=== PATIENT | female | born 2000 | race Caucasian/White ===

== ENCOUNTER 2020-01-08 16:40 | Observation (INO) ==
[2020-01-08] MEDS ORDERED: ONDANSETRON INJ 2 MG/ML 2 ML VIAL IV STA ×3 (17:17→21:27)
[2020-01-08] MEDS ORDERED: SODIUM CHLORIDE 0.9% 1000ML 1,000 ML IV ONE ×2 (17:17→19:20)
[2020-01-08] MEDS ORDERED: CYANOCOBALAMIN 1,000 MCG in SYRINGE 0.97 ML IM STA (17:17)
[2020-01-08] MEDS ORDERED: MoRPHine SULFATE 4 MG/ML 1 ML CARP\\VIAL IV STA (17:17)
[2020-01-08] MEDS ORDERED: CYANOCOBALAMIN 1000 MCG/ML VIAL IM ONE (17:30)
--- NOTE | 2020-01-08 17:48 | Emergency Department Note ---
Impression & Plan Abdominal pain, Hx of cholecystectomy, Nausea & vomiting ED Provider Note NAME: FLYNN YO AGE: 19 SEX: F : 2000 ARRIVES VIA: Walk-In INFORMANT: Patient, ED PROVIDER(S): Bronson Brown MD Chief Complaint: Abdominal pain, nausea vomiting HPI: Patient does present with the above complaints. Patient states that she has had symptoms for approximately 12 to 24 hours. The patient has had approximately 15 episodes of nonbloody nonbilious emesis. Patient does complain of abdominal pain that is in the epigastric. It is sharp in nature. The patient does state that she had a recent cholecystectomy and appendectomy. The patient's cholecystectomy was completed secondarily after her appendectomy ginger roximately 4 weeks ago. The appendectomy was 2 weeks prior to that. Patient does have pain that is located over her incisional site. Patient has tried to take Zofran at home but vomited. Patient denies any fevers or chills. The patient is from [place] and a student the patient denies any sick contacts. Patient denies any changes in diet denies alcohol or tobacco use. Given the patient's recent surgery the patient has been off of her control and the patient is currently on her menstrual period. ROS: See HPI for pertinent positives and negatives. A total of 10 systems were reviewed and otherwise negative. Past medical history: See below Surgical history: See below Social history: See below Physical Exam: GENERAL: Uncomfortable in appearance. Wearing glasses and a mask. EYE EXAM: Normal conjunctiva. PERRL, no anisocoria and EOM's grossly intact w/o pain. NECK: Supple, no nuchal rigidity, no adenopathy, non-tender. No signs of meningismus. LUNGS: Clear to auscultation. Normal chest wall mechanics. HEART: NSR, no MRG. ABDOMEN: Epigastric pain without peritonitis, no lower abdominal pain. Incisional site is well-appearing without fluctuance drainage or erythema. BACK: No CVA TTP. SKIN: No rashes and no bruising. UPPER EXTREMITIES: Upper extremities are grossly normal. LOWER EXTREMITIES: Grossly normal, no edema. NEURO EXAM: A&O x3, cranial nerves II-XII grossly intact, normal speech, moves all 4 extremities on command w/o issue. Differential diagnoses: Appendicitis, ovarian cyst, ovarian torsion, ectopic , TOA, PID, infections, diverticulitis, UTI, obstruction, mesenteric ischemia, aortic pathology, inflammatory bowel disease, renal colic, PUD, pancreatitis, biliary pathology, hernia, volvulus, constipation, as well as other pathologies. Course: Patient was seen and evaluated the bedside. Full history physical exam was performed. EKG: Sinus rate of 70, normal QRS, normal axis no ST changes. Imaging Studies: Radiology results as stated below per my review in the radiologist's interpretation: ABDOMEN AND PELVIS CT WITH IV CONTRAST CT DOSE: 253.46 mGy.cm HISTORY: upper ab pain n/v; recent van/appy 4 weeks ago TECHNIQUE: Multiaxial CT images of the abdomen and pelvis were performed following the use of intravenous contrast. A dose lowering technique was utilized adhering to the principles of ALARA. COMPARISON STUDY: None. FINDINGS: The lung bases are clear. No pneumoperitoneum. No pneumatosis. No fractures within the visualized osseous structures. No hepatic or splenic masses. The spleen, adrenal glands, and kidneys are within normal limits. There is a duplicated left renal collecting system. The ureters join distally. The main portal vein is patent. Evidence for pancreas divisum. The main pancreatic duct is normal in caliber. The common bile duct measures 6 mm in diameter. Status post cholecystectomy. There is trace fluid at the gallbladder fossa. Mild central intrahepatic bile duct dilatation. This is likely secondary to the patient's postcholecystectomy state. No retroperitoneal lymphadenopathy. Normal caliber abdominal aorta. The bladder and uterus are within normal limits. A few small follicles/cysts within the ovaries. Trace pelvic free fluid. This is likely physiologic. No bowel wall thickening or obstruction. The appendix is surgically absent. Questionable thickening of the distal stomach is likely due to underdistention. IMPRESSION: 1. No bowel wall thickening or obstruction. 2. Prior cholecystectomy and appendectomy. 3. Trace fluid within the gallbladder fossa. This is likely due to residual postoperative change. A low-grade bile leak could also have a similar appearance but is considered less likely. 4. Pancreas divisum. The main pancreatic duct is normal in caliber. 5. Mild central intrahepatic bile duct dilatation. This is likely due to the patient's postcholecystectomy state. 6. Trace pelvic free fluid which is likely physiologic. ACT 112: Negative or not required by law. Electronically signed by: Thony Vincent M.D. 01/08/2020 7:04 PM Dictated: 01/08/201854 Transcribed: 01/08/201854 Cardiac monitoring: An order was placed for continuous cardiac monitoring. The monitor shows a rate of 90 with sinus rhythm. MDM: Patient was seen due to concern for abdominal pain with nausea vomiting. Patient's blood work showed a normal white count H&H platelet count. Kidney function is unremarkable. Borderline elevated calcium. The patient's LFTs and lipase unremarkable. Urinalysis does not show obvious infection and test is negative. Patient CT does show some trace fluid within the gallbladder fossa. Likely postoperative but unsure as to whether or not this could be related to low-grade bile leak. Given this possibility I did speak the on-call general surgery team Tomasz Martinez PA-C he did discuss the patient's findings and case with Dr. Norman. The patient was admitted to medicine under Dr. Diana Hunter. Patient was pending a HIDA scan to be completed tomorrow. Past Med/Surg History Medical History (Updated 01/08/20 @ 21:47 by Bronson Brown MD) No pertinent past medical history Surgical History (Updated 01/08/20 @ 21:47 by Bronson Brown MD) Hx of appendectomy Hx of cholecystectomy Family History Other Hypertension Social History (Updated 01/08/20 @ 17:48 by Bronson Brown MD) Smoking Status: Never smoker Hx Alcohol Use: No Hx Substance Use: No Feels Safe at Home: Yes Allergies Allergies Allergy/AdvReac Type Severity Reaction Status Date / Time BIRCH POLLEN Allergy Mild RASH IN Uncoded 01/08/20 18:38 MOUTH Home Meds Home Medications Medication Instructions Recorded Confirmed etonogestrel-ethinyl estradiol 1 vag ring VAGINAL DIRECTED 01/08/20 01/08/20 [NuvaRing] Results & Data (ED) Vital Signs Vital Signs - 24 hr 01/08/20 16:58 01/08/20 17:51 01/08/20 17:54 Temperature 36.6 C Temperature Source Oral Pulse Rate 90 73 Pulse Rate from SpO2 Sensor 75 Respiratory Rate 17 16 Respiratory Pattern Regular Blood Pressure 101/65 Blood Pressure Mean 77 Pulse Oximetry 99 100 100 Oxygen Delivery Method Room Air Room Air Sepsis Recent Fever Within 48 Hours No Sepsis New/Unexplained Change in Mental Status No Sepsis Action Taken by Nursing No Action Required 01/08/20 18:00 01/08/20 18:30 01/08/20 19:00 Temperature Temperature Source Pulse Rate 77 77 83 Pulse Rate from SpO2 Sensor 75 78 82 Respiratory Rate 17 14 16 Respiratory Pattern Blood Pressure Blood Pressure Mean Pulse Oximetry 100 100 100 Oxygen Delivery Method Sepsis Recent Fever Within 48 Hours Sepsis New/Unexplained Change in Mental Status Sepsis Action Taken by Nursing 01/08/20 19:30 01/08/20 19:42 01/08/20 19:59 Temperature Temperature Source Pulse Rate 78 74 93 H Pulse Rate from SpO2 Sensor 72 73 87 Respiratory Rate 15 16 17 Respiratory Pattern Blood Pressure 116/70 116/71 Blood Pressure Mean 75 83 Pulse Oximetry 100 100 98 Oxygen Delivery Method Sepsis Recent Fever Within 48 Hours Sepsis New/Unexplained Change in Mental Status Sepsis Action Taken by Nursing 01/08/20 20:01 01/08/20 20:29 01/08/20 20:30 Temperature Temperature Source Pulse Rate 67 91 H 73 Pulse Rate from SpO2 Sensor 68 92 H 73 Respiratory Rate 20 20 21 Respiratory Pattern Blood Pressure 122/84 Blood Pressure Mean 97 Pulse Oximetry 99 96 98 Oxygen Delivery Method Sepsis Recent Fever Within 48 Hours Sepsis New/Unexplained Change in Mental Status Sepsis Action Taken by Nursing 01/08/20 21:00 01/08/20 21:01 Temperature Temperature Source Pulse Rate 113 H 105 H Pulse Rate from SpO2 Sensor 112 H 107 H Respiratory Rate 19 14 Respiratory Pattern Blood Pressure 114/69 Blood Pressure Mean 84 Pulse Oximetry 100 100 Oxygen Delivery Method Sepsis Recent Fever Within 48 Hours Sepsis New/Unexplained Change in Mental Status Sepsis Action Taken by Long-Term Medications Current Medication List: was personally reviewed by pr Laboratory Data Attestation: I reviewed the patient's lab results. Result diagrams: 01/08/20 17:17 01/08/20 17:44 Lab Results 01/08/20 01/08/20 01/08/20 Range/Units 17:17 17:44 18:20 WBC 6.96 (4.8-10.8) K/uL RBC 4.67 (4.2-5.4) M/uL Hgb 14.2 (12.0-16.0) g/dL Hct 40.8 (37-47) % MCV 87.4 (80-100) fL MCH 30.4 (25-34) pg MCHC 34.8 (32-36) g/dL RDW Std Deviation 41.7 (36.4-46.3) fL RDW Coeff of Honey 13.1 (11.5-14.5) % Plt Count 222 (130-400) K/uL MPV 11.0 H (7.4-10.4) fL Immature Gran % (Auto) 0.1 % Neut % (Auto) 73.8 % Lymph % (Auto) 17.8 % [place] % (Auto) 8.2 % Eos % (Auto) 0.0 % Baso % (Auto) 0.1 % Neut # (Auto) 5.13 (1.4-6.5) K/uL Lymph # (Auto) 1.24 (1.2-3.4) K/uL [place] # (Auto) 0.57 (0.11-0.59) K/uL Eos # (Auto) 0.00 (0-0.5) K/uL Baso # (Auto) 0.01 (0-0.2) K/uL Immature Gran # (Auto) 0.01 (0.00-0.02) K/uL Sodium 141 (136-145) mmol/L Potassium 3.7 (3.5-5.1) mmol/L Chloride 107 (98-107) mmol/L Carbon Dioxide 23 (21-32) mmol/L Anion Gap 11.0 (3-11) BUN 8 (7-18) mg/dl Creatinine 0.94 (0.6-1.2) mg/dl Est Cr Clr Drug Dosing 66.5 ml/min Est GFR ( Amer) 101.2 Est GFR (Non-Af Amer) 87.3 BUN/Creatinine Ratio 8.1 L (10-20) Glucose 88 (70-99) mg/dl Calcium 10.3 H (8.5-10.1) mg/dl Magnesium 2.3 (1.8-2.4) mg/dl Total Bilirubin 0.8 (0.2-1) mg/dl AST 12 L (15-37) U/L ALT 20 (12-78) U/L Alkaline Phosphatase 68 (45-117) U/L Total Protein 7.6 (6.4-8.2) gm/dl Albumin 4.6 (3.4-5.0) gm/dl Globulin 3.0 (2.5-4.0) gm/dl Albumin/Globulin Ratio 1.5 (0.9-2) Lipase 85 (73-393) U/L Urine Color Yellow Urine Appearance Clear (Clear) Urine pH >= 9.0 H (4.5-7.5) Ur Specific [place] 1.017 (1.000-1.030) Urine Protein Negative (Negative) Urine Glucose (UA) Negative (Negative) Urine Ketones Trace H (Negative) Urine Blood 1+ H (Negative) Urine Nitrite Negative (Negative) Urine Bilirubin Negative (Negative) Urine Urobilinogen Negative (Negative) Ur Leukocyte Esterase Trace H (Negative) Urine WBC (Auto) 1-5 (0-5) /hpf Urine RBC (Auto) 0-4 (0-4) /hpf U Hyaline Cast (Auto) 1-5 (0-5) /lpf U Epithel Cells (Auto) 10-20 H (0-5) /lpf Urine Bacteria (Auto) Negative (Negative) Urine Test (Negative) 01/08/20 Range/Units 18:20 WBC (4.8-10.8) K/uL RBC (4.2-5.4) M/uL Hgb (12.0-16.0) g/dL Hct (37-47) % MCV (80-100) fL MCH (25-34) pg MCHC (32-36) g/dL RDW Std Deviation (36.4-46.3) fL RDW Coeff of Honey (11.5-14.5) % Plt Count (130-400) K/uL MPV (7.4-10.4) fL Immature Gran % (Auto) % Neut % (Auto) % Lymph % (Auto) % [place] % (Auto) % Eos % (Auto) % Baso % (Auto) % Neut # (Auto) (1.4-6.5) K/uL Lymph # (Auto) (1.2-3.4) K/uL [place] # (Auto) (0.11-0.59) K/uL Eos # (Auto) (0-0.5) K/uL Baso # (Auto) (0-0.2) K/uL Immature Gran # (Auto) (0.00-0.02) K/uL Sodium (136-145) mmol/L Potassium (3.5-5.1) mmol/L Chloride (98-107) mmol/L Carbon Dioxide (21-32) mmol/L Anion Gap (3-11) BUN (7-18) mg/dl Creatinine (0.6-1.2) mg/dl Est Cr Clr Drug Dosing ml/min Est GFR ( Amer) Est GFR (Non-Af Amer) BUN/Creatinine Ratio (10-20) Glucose (70-99) mg/dl Calcium (8.5-10.1) mg/dl Magnesium (1.8-2.4) mg/dl Total Bilirubin (0.2-1) mg/dl AST (15-37) U/L ALT (12-78) U/L Alkaline Phosphatase (45-117) U/L Total Protein (6.4-8.2) gm/dl Albumin (3.4-5.0) gm/dl Globulin (2.5-4.0) gm/dl Albumin/Globulin Ratio (0.9-2) Lipase (73-393) U/L Urine Color Urine Appearance (Clear) Urine pH (4.5-7.5) Ur Specific [place] (1.000-1.030) Urine Protein (Negative) Urine Glucose (UA) (Negative) Urine Ketones (Negative) Urine Blood (Negative) Urine Nitrite (Negative) Urine Bilirubin (Negative) Urine Urobilinogen (Negative) Ur Leukocyte Esterase (Negative) Urine WBC (Auto) (0-5) /hpf Urine RBC (Auto) (0-4) /hpf U Hyaline Cast (Auto) (0-5) /lpf U Epithel Cells (Auto) (0-5) /lpf Urine Bacteria (Auto) (Negative) Urine Test Negative (Negative) Administered Medications Discontinued Medications Cyanocobalamin (Cyanocobalamin 1000 Mcg/Ml Vial) 1,000 mcg IM NOW ONE Stop: 01/08/20 17:31 Last Admin: 01/08/20 19:11 Dose: 1,000 mcg Documented by: [id number] Sodium Chloride (Nss 1000ml) 1,000 mls @ 999 mls/hr IV .Q1H1M ONE Stop: 01/08/20 18:17 Last Infusion: 01/08/20 19:18 Dose: 0 mls/hr Documented by: [id number] Admin: 01/08/20 17:50 Dose: 999 mls/hr Documented by: [id number] Sodium Chloride (Nss 1000ml) 1,000 mls @ 999 mls/hr IV .Q1H1M ONE Stop: 01/08/20 20:20 Last Admin: 01/08/20 19:39 Dose: 999 mls/hr Documented by: [id number] Lorazepam (Ativan) 0.5 mg in 1 mls @ 1 mls/min IV NOW STA Stop: 01/08/20 19:21 Last Admin: 01/08/20 19:36 Dose: 1 mls/min Documented by: [id number] Ioversol (Ioversol 100ml) 91 ml IV ONCE ONE Stop: 01/08/20 18:49 Last Admin: 01/08/20 18:51 Dose: 91 ml Documented by: [id number] Morphine Sulfate (Morphine Sulfate 4 Mg/Ml 1 Ml Carp\Vial) 4 mg IV NOW STA Stop: 01/08/20 17:18 Last Admin: 01/08/20 17:50 Dose: 4 mg Documented by: [id number] Ondansetron HCl (Ondansetron Inj 2 Mg/Ml 2 Ml Vial) 4 mg IV NOW STA Stop: 01/08/20 17:18 Last Admin: 01/08/20 17:50 Dose: 4 mg Documented by: [id number] Ondansetron HCl (Ondansetron Inj 2 Mg/Ml 2 Ml Vial) 4 mg IV NOW STA Stop: 01/08/20 19:21 Last Admin: 01/08/20 19:36 Dose: 4 mg Documented by: [id number] Discharge Plan Visit Data Chief Complaint: Dehydration Stated Complaint: vomiting, dehydrated ED Provider: Bronson Brown Discharge Problem: Abdominal pain, Hx of cholecystectomy, Nausea & vomiting Forms Stand Alone Forms: [employer] Prescriptions Prescriptions: No Action etonogestrel-ethinyl estradiol [NuvaRing] 0.12-0.015 mg/24 hr Ring 1 vag ring VAGINAL DIRECTED RF: 0 Discharge Problem: Abdominal pain Qualifiers: Abdominal location: epigastric Qualified Code(s): R10.13 - Epigastric pain Nausea & vomiting Qualifiers: Vomiting type: unspecified Vomiting Intractability: non-intractable Qualified Code(s): R11.2 - Nausea with vomiting, unspecified
[2020-01-08 18:11] LABS: Basophils # (auto) 0.01 K/uL (0-0.2); Basophils % (auto) 0.1 %; Hematocrit (blood only) 40.8 % (37-47); Hemoglobin 14.2 g/dL (12.0-16.0); Immature Granulocytes # (auto) 0.01 K/uL (0.00-0.02); Immature Granulocytes % (auto) 0.1 %; Lymphocytes # (auto) 1.24 K/uL (1.2-3.4); Lymphocytes % (auto) 17.8 %; Mean Corpuscular Hemoglobin 30.4 pg (25-34); Mean Corpuscular Hgb Conc 34.8 g/dL (32-36); Mean Corpuscular Volume 87.4 fL (80-100); Monocytes # (auto) 0.57 K/uL (0.11-0.59); Monocytes % (auto) 8.2 %; Neutrophils # (auto) 5.13 K/uL (1.4-6.5); Neutrophils % (auto) 73.8 %; Platelet Count 222 K/uL (130-400); RDW Coefficient of Variation 13.1 % (11.5-14.5); RDW Standard Deviation 41.7 fL (36.4-46.3); Red Blood Count 4.67 M/uL (4.2-5.4); White Blood Count 6.96 K/uL (4.8-10.8)
[2020-01-08 18:15] LABS: Albumin Level 4.6 gm/dl (3.4-5.0); BUN Creatinine Ratio 8.1 (10-20); Calcium 10.3 mg/dl (8.5-10.1); Creatinine Clr Calc Pharmacy 66.5 ml/min; Est GFR (African American) 101.2; Est GFR (Non-African American) 87.3; Magnesium 2.3 mg/dl (1.8-2.4); Potassium 3.7 mmol/L (3.5-5.1)
[2020-01-08 18:18] LABS: Albumin Globulin Ratio 1.5 (0.9-2); Bilirubin,Total 0.8 mg/dl (0.2-1); Total Protein 7.6 gm/dl (6.4-8.2)
[2020-01-08 18:40] LABS: Pregnancy Test, Urine Negative (Negative)
[2020-01-08 18:43] LABS: Appearance Urine Clear (Clear); Bacteria Urine Automated Negative (Negative); Bilirubin Urine Negative (Negative); Blood Urine 1+ (Negative); Color Urine Yellow; Glucose Urine UA Negative (Negative); Ketones Urine Trace (Negative); Leukocyte Esterase Urine Trace (Negative); Nitrite Urine Negative (Negative); Protein Urine Negative (Negative); RBC Urine Automated 0-4 /hpf (0-4); Specific Gravity Urine 1.017 (1.000-1.030); Urobilinogen Urine Negative (Negative); pH Urine >= 9.0 (4.5-7.5)
[2020-01-08] MEDS ORDERED: IOVERSOL 100ml IV ONE (18:48)
--- NOTE | 2020-01-08 19:06 | CT Scan Report ---
ABDOMEN AND PELVIS CT WITH IV CONTRAST CT DOSE: 253.46 mGy.cm HISTORY: upper ab pain n/v; recent van/appy 4 weeks ago TECHNIQUE: Multiaxial CT images of the abdomen and pelvis were performed following the use of intrave nous contrast. A dose lowering technique was utilized adhering to the principles of ALARA. COMPARISON STUDY: None. FINDINGS: The lung bases are clear. No pneumoperitoneum. No pneumatosis. No fractures within the visu alized osseous structures. No hepatic or splenic masses. The spleen, adrenal glands, and kidneys are within normal limits. There is a duplicated left renal collecting system. The ureters join distally. The main portal vein is patent. Evidence for pancreas divisum. The main pancreatic duct is normal in caliber. The common bile duct measures 6 mm in diameter. Status post cholecystectomy. There is trace fluid at the gallbladder fossa. Mild central intrahepatic bile duct dilatation. This is likely second micheal to the patient's postcholecystectomy state. No retroperitoneal lymphadenopathy. Normal caliber ab dominal aorta. The bladder and uterus are within normal limits. A few small follicles/cysts within th e ovaries. Trace pelvic free fluid. This is likely physiologic. No bowel wall thickening or obstructi on. The appendix is surgically absent. Questionable thickening of the distal stomach is likely due to underdistention. IMPRESSION: 1. No bowel wall thickening or obstruction. 2. Prior cholecystectomy and appendectomy. 3. Trace fluid within the gallbladder fossa. This is likely due to residual postoperative change. A l ow-grade bile leak could also have a similar appearance but is considered less likely. 4. Pancreas divisum. The main pancreatic duct is normal in caliber. 5. Mild central intrahepatic bile duct dilatation. This is likely due to the patient's postcholecyste ctomy state. 6. Trace pelvic free fluid which is likely physiologic. ACT 112: Negative or not required by law. Electronically signed by: Thony Vincent M.D. 01/08/2020 7:04 PM
[2020-01-08] MEDS ORDERED: LORazepam 0.5 MG/1 ML VIAL IV STA ×2 (19:20→21:27)
--- NOTE | 2020-01-08 20:30 | Surgery Consultation ---
Date of Consultation January 08, 2020 Assessment & Plan (1) Abdominal pain: -etiology of pain could be post-op pain, pain from menstrual period, or pain from bile leak -recommend HIDA scan to exclude bile leak (ordered in [employer]): -if bile leak present pt. will need GI evaluation -recommend providing hydration for dehydration resulting from N/V -recommend providing anti-emetics and analgesics -discussed with ED physician who will ask hospitalist to admit Dr. Norman-patient with nonspecific abdominal pain and currently extreme anxiety in the emergency room Her CAT scan shows very trace fluid in the gallbladder fossa which is essentially normal post cholecystectomy even after 4-weeks Her abdomen is soft, it is doubtful she has a significant bile leak we will check a HIDA scan She does not need surgical intervention History of Present Illness History of Present Illness 19 year old female had 2 recent surgeries in [place]--appendectomy 6 weeks ago and then cholecystectomy 4 weeks ago. She was doing well, but due to recent surgeries has not been taking her OCPs; she relates that when she has her menstrual period without her OCPs on board she develops severe N/V and abdominal pain. She currently has her menstrual period and for the past 48 hours has had N/V and non-radiating abdominal pain. No provocative factors. Pain is palliated with pain meds given in the ED. The pain is most pronounced in hte RUQ. In the ED, she was afebrile. WBC ad H/H were normal. LFTs and lipase were normal. test was normal. Ct scan of the abdomen showed a small fluid collection in the GB fossa--unable to exclude bile leak. At the time of my exam she was in no distress. Allergies Allergy/AdvReac Type Severity Reaction Status Date / Time BIRCH POLLEN Allergy Mild RASH IN Uncoded 01/08/20 18:38 MOUTH Home Medications Home Medications Medication Instructions Recorded Confirmed Type etonogestrel-ethinyl estradiol 1 vag ring VAGINAL DIRECTED 01/08/20 01/08/20 History [NuvaRing] Patient History Medical History (Updated 01/08/20 @ 21:11 by Diana Hunter DO) No pertinent past medical history Surgical History (Updated 01/08/20 @ 21:08 by Diana Hunter DO) Hx of appendectomy Hx of cholecystectomy Family History Other Hypertension Social History (Updated 01/08/20 @ 17:48 by Bronson Brown MD) Smoking Status: Never smoker Hx Alcohol Use: No Hx Substance Use: No Feels Safe at Home: Yes Review of Systems Constitutional: no fever and no chills Eyes: no diplopia Ear, Nose, Mouth, Throat: no ear pain Respiratory: no cough and no dyspnea Cardiovascular: no chest pain Gastrointestinal: + abdominal pain, + nausea and + vomiting Genitourinary: no dysuria Musculoskeletal: no back pain Integumentary: no rash Neurologic: no localized weakness Physical Exam Constitutional: well developed and well nourished; no acute distress Eyes: wears glasses ENMT: Ears: no hearing impairment Neck: trachea midline Respiratory: normal respiratory effort; no respiratory distress and no labored breathing Cardiovascular: Rate/Rhythm: regular rate and regular rhythm Gastrointestinal (Abdomen): Percussion/Palpation: + abdomen tender (RUQ) and abdomen soft surgical incisions from lap appy and lap van are all well healed Musculoskeletal: no calf pain Skin: no rashes, warm and dry Neurologic: moves all extremities Psychiatric: A+Ox3, euthymic affect Results & Data ([facility]) Vital Signs (Past 12 Hours) Vital Signs Temp Pulse Resp BP Pulse Ox 01/08/20 17:51 100 01/08/20 16:58 36.6 C 90 17 101/65 99 PG Care Time/CCT Total # of Minutes Spent Total Time Spent with Patient: Total time spent is greater than 50% in coordination of care (as documented) at patient's floor/unit and/or counseling patient: Coding Level of Care Code 84360 Inpt Consult Level 4 Diagnoses Abdominal pain R10.9
--- NOTE | 2020-01-08 21:16 | History & Physical Report ---
Date of Service January 08, 2020 Assessment & Plan (1) Nausea & vomitinyo C female presenting with 48hours of nausea/vomiting and abdominal pain. Patient had an appendectomy performed 6 weeks ago and cholecystecom[address] imaging here with possible bile leak noted. Surgery team has seen the patient and recommends HIDA scan for further workup of possible bile leak. Patient is non-toxic in appearance. Appears slightly dry clinically. Labs are unremarkable, electrolytes, H/H and renal function within normal limits. -Observation to medical floor -Check HIDA scan - if bile leak is suggested will consult GI -Repeat labs in AM, BMP/CBC/LFTs -IVF - LR at 80mL/hr x 2 liters -Zofran and Tylenol PRN -Morphine PRN severe pain -NPO after midnight Present on Admission?: Yes (2) Abdominal pain: As above, LFTs and Lipase are within normal limits -HIDA scan as above -Tylenol, Zofran, Morphine PRN Present on Admission?: Yes (3) Hx of cholecystectomy: Plan as above -Obtain records F/E/N - LR at 80mL/hr x 2 liters, electrolytes WNL, clear liquids as tolerated and NPO after midnight Ppx - Low risk for DVT Code - Full Dispo - Observation to medical floor Present on Admission?: Yes History of Present Illness Chief Complaint: abdominal pain Primary Care Provider: 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 Patient had an appendectomy performed appx 6 weeks ago and a cholecystecomy 4 weeks ago at [facility] in [place] Saldaña MD. Surgery was well tolerated with no complications identified. Patient has had nausea with multiple episodes of non-bloody/non-bilious vomiting over the past 48 hours. She has been unable to tolerate oral intake. She has also had upper abdominal and RUQ discomfort, most pronounced at upper incision site. Upon arrival to the ER she was found to be afebrile, hemodynamically stable and non-toxic in appearance. She had a CT of the abdomen which revealed post-operative changes and possible bile leak. General Surgery was consulted and saw the patient in the ER, recommended HIDA scan for further workup. Patient with no additional complaints at this time. Patient has been off her control (NuvaRing) since her surgery. She reports having fairly severe nausea and abdominal pain associated with menstruation in the past. She was started on hormonal contraception due to these symptoms and reports that since using the NuvaRing her menstrual symptoms have much improved. This is the first period she has had since being off control. Patient has no concern for exposure to Covid-19. ER Course: Zofran 4mg IV x 2, Ativan 0.mg IV, Morphine 4mg IV, NSS x 2L, VitB12 1000mcg IM Allergies Allergy/AdvReac Type Severity Reaction Status Date / Time BIRCH POLLEN Allergy Mild RASH IN Uncoded 01/08/20 18:38 MOUTH Home Medications Home Medications Medication Instructions Recorded Confirmed Type etonogestrel-ethinyl estradiol 1 vag ring VAGINAL DIRECTED 01/08/20 01/08/20 History [NuvaRing] Past Med/Surg History Medical History (Updated 01/08/20 @ 21:11 by Diana Hunter DO) No pertinent past medical history Surgical History (Updated 01/08/20 @ 21:08 by Diana Hunter DO) Hx of appendectomy Hx of cholecystectomy Family History Other Hypertension Social History (Updated 01/08/20 @ 17:48 by Bronson Brown MD) Smoking Status: Never smoker Hx Alcohol Use: No Hx Substance Use: No Feels Safe at Home: Yes Review of Systems Review of Systems: All systems reviewed & are unremarkable except as noted in HPI & below Physical Exam Physical Exam: General: patient resting comfortably, NAD, non-toxic in appearance, AA&O x 4 Skin: warm, dry, abdominal surgical sites well approximated, no bleeding/drainage/erythema or dehiscence HEENT: NC/AT, PERRL, EOMI, anicteric sclera, conjunctiva without injection, external ear normal to inspection and nontender, nares patent, slightly dry mucus membranes, dentition intact, no oropharyngeal lesions, neck supple, trachea midline, no LAD, no thyromegaly, no JVD Heart: +S1/S2, regular, no m/r/g Lungs: equal air entry bilaterally, no rales/rhonchi/wheezes Abd: +BS, soft, mildly tender with RUQ palpation, no rebound/guarding/peritoneal signs, ND, no masses/organomegaly/ascites Ext: warm, 2+ pulses in UE/LE bilaterally, no clubbing/cyanosis or edema Neuro: nonfocal, patient AA&O x 4, speech intact, no facial droop, moving all extremities on command with equal strength 5/5 Results & Data Results & Data ([facility]) Vital Signs (Past 12 Hours) Vital Signs Temp Pulse Resp BP Pulse Ox 01/08/20 20:01 67 20 99 01/08/20 19:59 93 H 17 116/71 98 01/08/20 19:42 74 16 116/70 100 01/08/20 19:30 78 15 100 01/08/20 19:00 83 16 100 01/08/20 18:30 77 14 100 01/08/20 18:00 77 17 100 01/08/20 17:54 73 16 01/08/20 17:51 100 01/08/20 16:58 36.6 C 90 17 101/65 99 Laboratory Results Lab Results 01/08/20 01/08/20 01/08/20 Range/Units 17:17 17:44 18:20 WBC 6.96 (4.8-10.8) K/uL RBC 4.67 (4.2-5.4) M/uL Hgb 14.2 (12.0-16.0) g/dL Hct 40.8 (37-47) % MCV 87.4 (80-100) fL MCH 30.4 (25-34) pg MCHC 34.8 (32-36) g/dL RDW Std Deviation 41.7 (36.4-46.3) fL RDW Coeff of Honey 13.1 (11.5-14.5) % Plt Count 222 (130-400) K/uL MPV 11.0 H (7.4-10.4) fL Immature Gran % (Auto) 0.1 % Neut % (Auto) 73.8 % Lymph % (Auto) 17.8 % [place] % (Auto) 8.2 % Eos % (Auto) 0.0 % Baso % (Auto) 0.1 % Neut # (Auto) 5.13 (1.4-6.5) K/uL Lymph # (Auto) 1.24 (1.2-3.4) K/uL [place] # (Auto) 0.57 (0.11-0.59) K/uL Eos # (Auto) 0.00 (0-0.5) K/uL Baso # (Auto) 0.01 (0-0.2) K/uL Immature Gran # (Auto) 0.01 (0.00-0.02) K/uL Sodium 141 (136-145) mmol/L Potassium 3.7 (3.5-5.1) mmol/L Chloride 107 (98-107) mmol/L Carbon Dioxide 23 (21-32) mmol/L Anion Gap 11.0 (3-11) BUN 8 (7-18) mg/dl Creatinine 0.94 (0.6-1.2) mg/dl Est Cr Clr Drug Dosing 66.5 ml/min Est GFR ( Amer) 101.2 Est GFR (Non-Af Amer) 87.3 BUN/Creatinine Ratio 8.1 L (10-20) Glucose 88 (70-99) mg/dl Calcium 10.3 H (8.5-10.1) mg/dl Magnesium 2.3 (1.8-2.4) mg/dl Total Bilirubin 0.8 (0.2-1) mg/dl AST 12 L (15-37) U/L ALT 20 (12-78) U/L Alkaline Phosphatase 68 (45-117) U/L Total Protein 7.6 (6.4-8.2) gm/dl Albumin 4.6 (3.4-5.0) gm/dl Globulin 3.0 (2.5-4.0) gm/dl Albumin/Globulin Ratio 1.5 (0.9-2) Lipase 85 (73-393) U/L Urine Color Yellow Urine Appearance Clear (Clear) Urine pH >= 9.0 H (4.5-7.5) Ur Specific [place] 1.017 (1.000-1.030) Urine Protein Negative (Negative) Urine Glucose (UA) Negative (Negative) Urine Ketones Trace H (Negative) Urine Blood 1+ H (Negative) Urine Nitrite Negative (Negative) Urine Bilirubin Negative (Negative) Urine Urobilinogen Negative (Negative) Ur Leukocyte Esterase Trace H (Negative) Urine WBC (Auto) 1-5 (0-5) /hpf Urine RBC (Auto) 0-4 (0-4) /hpf U Hyaline Cast (Auto) 1-5 (0-5) /lpf U Epithel Cells (Auto) 10-20 H (0-5) /lpf Urine Bacteria (Auto) Negative (Negative) Urine Test (Negative) 01/08/20 Range/Units 18:20 WBC (4.8-10.8) K/uL RBC (4.2-5.4) M/uL Hgb (12.0-16.0) g/dL Hct (37-47) % MCV (80-100) fL MCH (25-34) pg MCHC (32-36) g/dL RDW Std Deviation (36.4-46.3) fL RDW Coeff of Honey (11.5-14.5) % Plt Count (130-400) K/uL MPV (7.4-10.4) fL Immature Gran % (Auto) % Neut % (Auto) % Lymph % (Auto) % [place] % (Auto) % Eos % (Auto) % Baso % (Auto) % Neut # (Auto) (1.4-6.5) K/uL Lymph # (Auto) (1.2-3.4) K/uL [place] # (Auto) (0.11-0.59) K/uL Eos # (Auto) (0-0.5) K/uL Baso # (Auto) (0-0.2) K/uL Immature Gran # (Auto) (0.00-0.02) K/uL Sodium (136-145) mmol/L Potassium (3.5-5.1) mmol/L Chloride (98-107) mmol/L Carbon Dioxide (21-32) mmol/L Anion Gap (3-11) BUN (7-18) mg/dl Creatinine (0.6-1.2) mg/dl Est Cr Clr Drug Dosing ml/min Est GFR ( Amer) Est GFR (Non-Af Amer) BUN/Creatinine Ratio (10-20) Glucose (70-99) mg/dl Calcium (8.5-10.1) mg/dl Magnesium (1.8-2.4) mg/dl Total Bilirubin (0.2-1) mg/dl AST (15-37) U/L ALT (12-78) U/L Alkaline Phosphatase (45-117) U/L Total Protein (6.4-8.2) gm/dl Albumin (3.4-5.0) gm/dl Globulin (2.5-4.0) gm/dl Albumin/Globulin Ratio (0.9-2) Lipase (73-393) U/L Urine Color Urine Appearance (Clear) Urine pH (4.5-7.5) Ur Specific [place] (1.000-1.030) Urine Protein (Negative) Urine Glucose (UA) (Negative) Urine Ketones (Negative) Urine Blood (Negative) Urine Nitrite (Negative) Urine Bilirubin (Negative) Urine Urobilinogen (Negative) Ur Leukocyte Esterase (Negative) Urine WBC (Auto) (0-5) /hpf Urine RBC (Auto) (0-4) /hpf U Hyaline Cast (Auto) (0-5) /lpf U Epithel Cells (Auto) (0-5) /lpf Urine Bacteria (Auto) (Negative) Urine Test Negative (Negative) Medications Administered ABDOMEN AND PELVIS CT WITH IV CONTRAST CT DOSE: 253.46 mGy.cm HISTORY: upper ab pain n/v; recent van/appy 4 weeks ago TECHNIQUE: Multiaxial CT images of the abdomen and pelvis were performed following the use of intravenous contrast. A dose lowering technique was utilized adhering to the principles of ALARA. COMPARISON STUDY: None. FINDINGS: The lung bases are clear. No pneumoperitoneum. No pneumatosis. No fractures within the visualized osseous structures. No hepatic or splenic masses. The spleen, adrenal glands, and kidneys are within normal limits. There is a duplicated left renal collecting system. The ureters join distally. The main portal vein is patent. Evidence for pancreas divisum. The main pancreatic duct is normal in caliber. The common bile duct measures 6 mm in diameter. Status post cholecystectomy. There is trace fluid at the gallbladder fossa. Mild central intrahepatic bile duct dilatation. This is likely secondary to the p atient's postcholecystectomy state. No retroperitoneal lymphadenopathy. Normal caliber abdominal aorta. The bladder and uterus are within normal limits. A few small follicles/cysts within the ovaries. Trace pelvic free fluid. This is likely physiologic. No bowel wall thickening or obstruction. The appendix is surgically absent. Questionable thickening of the distal stomach is likely due to underdistention. IMPRESSION: 1. No bowel wall thickening or obstruction. 2. Prior cholecystectomy and appendectomy. 3. Trace fluid within the gallbladder fossa. This is likely due to residual postoperative change. A low-grade bile leak could also have a similar appearance but is considered less likely. 4. Pancreas divisum. The main pancreatic duct is normal in caliber. 5. Mild central intrahepatic bile duct dilatation. This is likely due to the patient's postcholecystectomy state. 6. Trace pelvic free fluid which is likely physiologic. ACT 112: Negative or not required by law. Electronically signed by: Thony Vincent M.D. 01/08/2020 7:04 PM Dictated: 01/08/20 1855 Code Status & VTE Plan Code Status FULL PG Care Time/CCT Total # of Minutes Spent Total Time Spent with Patient: Total time spent is greater than 50% in coordination of care (as documented) at patient's floor/unit and/or counseling patient: Coding Level of Care Code 92067 OBS Care - Level 2 Diagnoses Nausea & vomiting R11.2 Vomiting type: unspecified Vomiting Intractability: unspecified Abdominal pain R10.10 Abdominal location: upper abdomen, unspecified Hx of cholecystectomy Z90.49 (1) Abdominal pain Abdominal location: upper abdomen, unspecified Qualified Code(s): R10.10 - Upper abdominal pain, unspecified (2) Nausea & vomiting Vomiting type: unspecified Vomiting Intractability: unspecified Qualified Code(s): R11.2 - Nausea with vomiting, unspecified
[2020-01-08] MEDS ORDERED: ONDANSETRON INJ 2 MG/ML 2 ML VIAL IV PRN (22:52)
[2020-01-08] MEDS ORDERED: MoRPHine SULFATE 2 MG/ML CARP IV PRN (22:52)
[2020-01-09] MEDS ORDERED: PROMETHAZINE HCL 6.25 MG in SODIUM CHLORIDE 0.9% 50 ML IV STA (00:15)
[2020-01-09] MEDS ORDERED: ALPRAZolam 0.25 MG TABLET PO PRN (00:54)
[2020-01-09] MEDS: LACTATED RINGER'S 1,000 ML IV SCH ×2 (01:38→17:11)
[2020-01-09 05:41] LABS: Basophils # (auto) 0.01 K/uL (0-0.2); Basophils % (auto) 0.2 %; Eosinophils # (auto) 0.01 K/uL (0-0.5); Eosinophils % (auto) 0.2 %; Hematocrit (blood only) 36.4 % (37-47); Hemoglobin 12.5 g/dL (12.0-16.0); Immature Granulocytes # (auto) 0.01 K/uL (0.00-0.02); Immature Granulocytes % (auto) 0.2 %; Lymphocytes # (auto) 1.58 K/uL (1.2-3.4); Lymphocytes % (auto) 36.7 %; Mean Corpuscular Hemoglobin 30.5 pg (25-34); Mean Corpuscular Hgb Conc 34.3 g/dL (32-36); Mean Corpuscular Volume 88.8 fL (80-100); Mean Platelet Volume 10.7 fL (7.4-10.4); Monocytes # (auto) 0.37 K/uL (0.11-0.59); Monocytes % (auto) 8.6 %; Neutrophils # (auto) 2.33 K/uL (1.4-6.5); Neutrophils % (auto) 54.1 %; Platelet Count 159 K/uL (130-400); RDW Coefficient of Variation 13.2 % (11.5-14.5); RDW Standard Deviation 43.3 fL (36.4-46.3); White Blood Count 4.31 K/uL (4.8-10.8)
[2020-01-09 05:53] LABS: INR 1.1 (0.9-1.1); Prothrombin Time 11.7 Seconds (9.0-12.0)
[2020-01-09 06:07] LABS: Albumin Level 3.6 gm/dl (3.4-5.0); BUN Creatinine Ratio 9.1 (10-20); Bilirubin Direct 0.2 mg/dl (0-0.2); Calcium 8.8 mg/dl (8.5-10.1); Creatinine Clr Calc Pharmacy 85.6 ml/min; Est GFR (African American) 137.4; Est GFR (Non-African American) 118.6; Potassium 3.7 mmol/L (3.5-5.1)
[2020-01-09 06:12] LABS: Bilirubin,Total 1.1 mg/dl (0.2-1)
[2020-01-09] MEDS: ACETAMINOPHEN 325 MG TAB PO PRN ×2 (07:57→08:04)
--- NOTE | 2020-01-09 11:38 | Nuclear Medicine Report ---
NUCLEAR MEDICINE HEPATOBILIARY SCAN HISTORY: Abnormal CT scan. Post cholecystectomy. assess for bile leak COMPARISON: Abdomen and pelvis CT 01/08/2020. TECHNIQUE: Immediately following the intravenous administration of 5.3 mCi Tc-99m Choletec, dynamic a nterior abdominal imaging was performed for a total of 35 minutes. A single static image of the abdom en was also performed at 45 minutes. FINDINGS: Uniform hepatic tracer accumulation is shown. Prompt intrahepatic biliary excretion is seen. The comm on bile duct and small bowel are all visualized by 10 minutes. No extraluminal radiotracer to suggest a bile leak. IMPRESSION: No evidence for a bile leak. ACT 112: Negative or not required by law. Electronically signed by: Thony Vincent M.D. 01/09/2020 11:36 AM
--- NOTE | 2020-01-09 12:37 | Electrocardiogram Report ---
Test Reason : Blood Pressure : / mmHG Vent. Rate : 070 BPM Atrial Rate : 070 BPM P-R Int : 106 ms QRS Dur : 086 ms QT Int : 430 ms P-R-T Axes : 061 083 028 degrees QTc Int : 464 ms Sinus rhythm Nonspecific ST abnormality Otherwise normal ECG No previous ECGs available Confirmed by Jas Weber ([id number]) on 01/09/2020 12:37:28 PM Referred By: REFERRED SELF Confirmed By:Wes Weber
--- NOTE | 2020-01-09 14:32 | Psychiatric Consultation ---
Date of Consultation January 09, 2020 Impression / Recommendations Impression Dr. Van Martinez was directly involved in review and discussion of the patient's case and participated in medical decision making regarding treatment recommendations. RECOMMENDATIONS: 01/08 - Psychiatric consultation requested by hospitalist service to evaluate patient for anxiety. - Pt does admit to history of anxiety, but reports it has worsened in the last 2 months related to recent medical concerns. Pt has numerous stressors including her own health issues, father in poor health, and of brother within the last two years. Pt would likely be a candidate for an SSRI to target generalized anxiety disorder and panic disorder; however, she is not interested in a daily maintenance regimen at this time. Encouraged patient to consider this as an option in the future, and education on SSRIs/SNRIs for anxiety was provided. - Pt is agreeable to medication she can utilize as needed for management of anxiety. We reviewed hydroxyzine use prn. Risks, benefits, and potential side effects were reviewed - patient verbalized understanding and is agreeable with trial of the medication. Suggested trial of 10mg q4h prn for acute anxiety. Patient was encouraged to take 1/2 tablet if medication is too strong, or 2 tablets as needed if dose is not sufficient to target anxiety. We reviewed that the medication can also be utilized for sleep if necessary. - Pt was agreeable with referral for outpatient therapy. Pt was not able to get treatment through her attempts at [facility]. She signed a release for therapy at [facility] and referral information was faxed. Pt was also provided with a resource book for mental health services in [facility]. - Pt denies SI/HI, acute mood concerns, or signs of psychosis. No indication for inpatient psychiatric treatment. Appreciate opportunity to participate in the care of this patient. Please reach out to our service with any additional questions or updates. Risk Factors Assessment Do You Have Access To A Gun?: No Psych History Identifying Data 19-year-old female admitted medically on 01/08/2020 after presenting to the ED with reports of nausea/vomiting and abdominal pain. Pt is 6 weeks s/p appendectomy and 4 weeks s/p cholecystectomy. Psychiatric consultation was r equested to evaluate patient for anxiety. Chief Complaint "It's been a rough few weeks, and months." History of Present Illness Diana Vaughn is a 19-year-old female admitted medically on 01/08/2020 after presenting to the ED with reports of nausea/vomiting and abdominal pain. Pt is 6 weeks s/p appendectomy and 4 weeks s/p cholecystectomy. Psychiatric consultation was requested to evaluate patient for anxiety. Pt admits to generalized anxiety with tendency toward catastrophizing since the of her older brother within the last 2 years. She states that her anxiety has increased significantly within the last 2 months in the context of her recent surgeries and abdominal issues. Pt reports physical sensations of feeling "tense", hyperventilating, and crying spells that are generally related to stressors, but can also occur upon waking from sleep in the morning. She admits her roommate often helps her utilize various coping skills and she finds being around people beneficial. Pt admits that these episodes may occur a few times a week. Pt admits to racing thoughts that prevent sleep at night and lead to reduced appetite. Pt denies significant mood concerns and denies SI or other safety issues. Pt admits that she would be willing for a therapy referral, as she was told she could not be seen at [facility]. She is willing to discuss medications, but is not interested in "anything group home." Education was provided on SSRIs and benefits of maintenance treatment for anxiety. She was encouraged to keep this as a consideration and discuss further with her therapist if desired. After reviewing recommendation for hydroxyzine, patient was agreeable with an as needed regimen and was interested in trial of the medication. Risks, benefits, and potential side effects were reviewed. Pt denied any additional questions or concerns. Pt was encouraged to reach out to our service as needed. Past Psychiatric History Outpatient Services: None presently Previous Psych Admissions: Denied Do You Have Access To A Gun?: No History of Previous Suicide Attempt: No Past Medication Trials: Pt states she was prescribed limited amount of alprazolam within the last 2 months for anxiety related to her surgeries. Allergies Allergy/AdvReac Type Severity Reaction Status Date / Time No Known Drug Allergies Allergy . Verified 01/08/20 22:57 Home Medications Home Medications Medication Instructions Recorded Confirmed Type etonogestrel-ethinyl estradiol 1 vag ring VAGINAL DIRECTED 01/08/20 01/08/20 History [NuvaRing] hydroxyzine HCl 10 mg PO Q4H 30 Days #180 tab 01/09/20 Rx Substance Abuse History Pt admits to occasional marijuana use to assist with anxiety and sleep. Personal History Highest Grade Completed: High School Graduate (currently attending [employer]) Employment Status: Student Marital Status: Single (never , has supportive boyfriend ) Psychological Trauma History Comment: Reports of brother within the last 2 years, found out over the phone. Patient History Medical History No pertinent past medical history Surgical History Hx of appendectomy Hx of cholecystectomy Family History Other Hypertension Social History Smoking Status: Never smoker Second Hand Exposure: Yes; Hx Alcohol Use: No Hx Substance Use: No Communication Ability: Effective Outside Collector Required: No Current Living Situation: Other Current Living Situation Comment: Room mate Feels Safe at Home: No Physical Exam Psychiatric: Orientation: alert, oriented x 3 and cooperative Apperance: appropriately dressed, appropriately groomed and appeared stated age Thin appearing female, laying in bed in no acute distress. Pt is appropriately dressed in a hospital gown. She is wearing corrective lenses, has long blonde hair. Grooming and hygiene are adequate. Eye Contact: good eye contact Motor Behavior: no abnormal motor movements (observed while laying in bed) Speech: normal rate/rhythm/volume of speech Affect: + anxious affect and mood congruent with affect Mood: + anxious mood; no depressed mood Thought Process: goal directed thought process, clear/coherent thought process and thought association intact Thought Content: reality based without delusions; no hopelessness and no worthlessness Suicidal Thoughts: denies suicidal thoughts, denies suicidal plan and denies suicidal intent Homicidal Thoughts: denies homicidal thoughts Hallucinations: no auditory hallucinations and no visual hallucinations Cognition: recent memory grossly intact, attention grossly intact and language grossly intact Estimated Intelligence: consistent with education level Insight: + fair insight Judgement: + fair judgement Vital Signs (Past 24 Hours): Last Vital Signs Temp 36.8 C 01/09/20 07:34 Pulse 78 01/09/20 07:34 Resp 20 01/09/20 07:34 BP 110/72 01/09/20 07:34 Pulse Ox 100 01/09/20 07:34 Review of Systems Constitutional: denied Cardiovascular: denied Respiratory: denied Gastrointestinal: denied Neurological: denied Psychiatric: denies symptoms other than stated above Total of at least 10 systems reviewed, pertinent positives as above and in HPI. Results & Data ([facility]) Medications Administered Acetaminophen (Acetaminophen 325 Mg Tab) 650 mg PO Q4H PRN PRN Reason: pain/fever Stop: 02/07/20 22:51 Last Admin: 01/09/20 08:04 Dose: 650 mg Documented by: [id number] Admin: 01/09/20 07:57 Dose: 650 mg Documented by: [id number] Alprazolam (Alprazolam 0.25 Mg Tablet) 0.25 mg PO Q12H PRN PRN Reason: anxiety Stop: 02/08/20 00:53 Last Admin: 01/09/20 07:18 Dose: 0.25 mg Documented by: [id number] Lactated Ringer's (Lr) 1,000 mls @ 80 mls/hr IV .[id number] SKINNY Stop: 01/09/20 23:51 Last Infusion: 01/09/20 14:21 Dose: 80 mls/hr Documented by: [id number] Infusion: 01/09/20 12:00 Dose: 80 mls/hr Documented by: [id number] Infusion: 01/09/20 10:50 Dose: 0 mls/hr Documented by: [id number] Admin: 01/09/20 01:38 Dose: 80 mls/hr Documented by: [id number] Ondansetron HCl (Ondansetron Inj 2 Mg/Ml 2 Ml Vial) 4 mg IV Q6H PRN PRN Reason: Nausea Stop: 02/07/20 22:51 Last Admin: 01/09/20 07:17 Dose: 4 mg Documented by: [id number] Coding Level of Care Code 30358 U Intl Hosp Care Lvl 2
--- NOTE | 2020-01-09 14:34 | Surgery Progress Note ---
Date of Service January 09, 2020 Assessment & Plan (1) Nausea & vomiting: apparently has N/V no evidence of bile leak no indication for surgical intervention pt with extreme anxiety- Psychiatry helping GI evaluation if N/V persist will sign off Admission and Anticipated Discharge Date Admission Date: January 08, 2020 Results & Data ([facility]) Vital Signs (Past 12 Hours) Vital Signs Temp Pulse Resp BP Pulse Ox 01/09/20 07:34 36.8 C 78 20 110/72 100 PG Care Time/CCT Total # of Minutes Spent Total Time Spent with Patient: Total time spent is greater than 50% in coordination of care (as documented) at patient's floor/unit and/or counseling patient: Coding Level of Care Code None Diagnoses Nausea & vomiting R11.2 Vomiting type: unspecified Vomiting Intractability: non-intractable (1) Nausea & vomiting Vomiting type: unspecified Vomiting Intractability: non-intractable Qualified Code(s): R11.2 - Nausea with vomiting, unspecified
[2020-01-09] MEDS ORDERED: hydrOXYzine HCl 10 MG TAB PO STA (16:22)
--- NOTE | 2020-01-09 16:22 | Discharge Summary ---
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 Patient had an appendectomy performed appx 6 weeks ago and a cholecystecomy 4 weeks ago at [facility] in [place] MD. Surgery was well tolerated with no complications identified. Patient has had nausea with multiple episodes of non-bloody/non-bilious vomiting over the past 48 hours. She has been unable to tolerate oral intake. She has also had upper abdominal and RUQ discomfort, most pronounced at upper incision site. Upon arrival to the ER she was found to be afebrile, hemodynamically stable and non-toxic in appearance. She had a CT of the abdomen which revealed post-operative changes and possible bile leak. General Surgery was consulted and saw the patient in the ER, recommended HIDA scan for further workup. Patient with no additional complaints at this time. Patient has been off her control (NuvaRing) since her surgery. She reports having fairly severe nausea and abdominal pain associated with menstruation in the past. She was started on hormonal contraception due to these symptoms and reports that since using the NuvaRing her menstrual symptoms have much improved. This is the first period she has had since being off control. Patient has no concern for exposure to Covid-19. ER Course: Zofran 4mg IV x 2, Ativan 0.mg IV, Morphine 4mg IV, NSS x 2L, VitB12 1000mcg IM Admission Exam Per Admitting Provider General: patient resting comfortably, NAD, non-toxic in appearance, AA&O x 4 Skin: warm, dry, abdominal surgical sites well approximated, no bleeding/drainage/erythema or dehiscence HEENT: NC/AT, PERRL, EOMI, anicteric sclera, conjunctiva without injection, external ear normal to inspection and nontender, nares patent, slightly dry mucus membranes, dentition intact, no oropharyngeal lesions, neck supple, trachea midline, no LAD, no thyromegaly, no JVD Heart: +S1/S2, regular, no m/r/g Lungs: equal air entry bilaterally, no rales/rhonchi/wheezes Abd: +BS, soft, mildly tender with RUQ palpation, no rebound/guarding/peritoneal signs, ND, no masses/organomegaly/ascites Ext: warm, 2+ pulses in UE/LE bilaterally, no clubbing/cyanosis or edema Neuro: nonfocal, patient AA&O x 4, speech intact, no facial droop, moving all extremities on command with equal strength 5/5 Principal Diagnosis Nausea and Vomiting, Anxiety Discharge Exam Constitutional well developed, + thin and cooperative; no acute distress Respiratory normal respiratory effort, lungs clear to auscultation Cardiovascular RRR, no murmur, no edema Gastrointestinal (Abdomen) Inspection/Auscultation: abdomen normal to inspection and normal bowel sounds; abdomen not distended Percussion/Palpation: + abdomen tender (slight TTP in the RUQ) and abdomen soft; no guarding Skin no rashes, warm and dry normal turgor Psychiatric Orientation: alert and oriented x 3 Affect: + anxious affect Discharge Data Allergies Allergy/AdvReac Type Severity Reaction Status Date / Time No Known Drug Allergies Allergy . Verified 01/08/20 22:57 Consultations 01/08/20 20:32 ED Decision to Admit Stat 01/09/20 12:54 Consult Psychiatry Routine Ordered Studies 01/08/20 17:17 CT abd pelvis IV con only Stat Hospital Course (1) Nausea & vomiting: Patient is a 19 year old female with PMHx s/p cholecystectomy, s/p appendectomy who presented with 2 day duration of nausea and vomiting and RUQ pain. Intractable Nausea and Vomiting -S/P appendectomy 6 weeks, S/P cholecystectomy 4 weeks -Given fluid boluses, Zofran, and Promethazine in the ED -Initial concern for bile leak noted on CT, Negative HIDA scan -Gen Surg consulted - no indication for surgery at this time -Continued LR at 80ml/hr IVF until patient able to take PO -Patient tolerated clears to full liquids prior to DC. -Dietary was also consulted assisting patient with increasing caloric intake as she had lost close to 10lb weight loss in the past 1-2 months unintentionally after surgeries. Anxiety -Patient noted has been ongoing for 2 years now but worsening the past 2 months -Has attempted to reach out to [facility] at [employer], but has found difficulty setting up appointment -Psychiatry consulted -Faxed patients information to [facility] for outpatient therapy and care -Recommended Vistaril 10mg q4h PRN anxiety -No concerns of SI/HI, acute mood concerns, or signs of psychosis (2) Abdominal pain: (3) Hx of cholecystectomy: (4) Anxiety: Total Time Total Time Spent Total Time Spent (In Minutes): see attending attestation Discharge Plan Discharge Items Patient Disposition: Home - Self-Care Reason For Visit: NAUSEA/VOMITING/ABDOMINAL PAIN Discharge Diagnosis: Nausea with Vomiting, Anxiety Activity: Resume your previous activity Non-emergency contact: Primary Care Provider Call non-emergency contact if: you have any medication questions and your symptoms worsen Follow-up/Referrals: [place] [Primary Care Provider] - Diet: Regular Addtl Attending Provider Instructions: Ms. Vaughn, It was our pleasure caring for you at [facility] from 01/07- 01/09/20 for your nausea and vomiting. You were initially admitted due to concerns of worsening nausea and vomiting. You were given intravenous fluids while in the ED as you had not been able to keep anything down per oral, and a CT scan was completed showing some signs that there may have been a bile leak. Surgery was consulted who recommended a HIDA scan to check for this complication from a gallbladder removal. This test was normal and no bile leak was noted. You rapidly recovered your appetite and were able to eat tomato soup and ice cream prior to discharge. During you stay you also noted a fair amount of anxiety that had been ongoing for 2 years now, but worsening in the past 2 months. You were evaluated by Psychiatry who made recommendations for medications to help with your anxiety as needed and faxed your information to [facility] for a referral. The medication they recommended was Vistaril. Lastly, you were seen by one of our Dietitians who gave you handouts and information regarding a healthy diet and healthy weight gain strategies. -Your medication for anxiety as needed Vistaril was sent to the pharmacy. Please take it as prescribed: -Vistaril 10mg tablet by mouth every 4 hours as needed. May decrease to 1/2 tablet or up to 2 tablets depending on effectiveness. -You should be contacted by [facility] in regards to an appointment with Psychiatry. -Please follow up with your Primary Care Provider in the next 1-2 weeks or earlier if your symptoms worsen. Pending Studies at Discharge: No Stand-Alone Forms: My [facility], Work/School Release (Inpt) Medications and DC Order Prescriptions: New hydroxyzine HCl 10 mg tablet 10 mg PO Q4H 30 Days Qty: 180 RF: 0 Continued etonogestrel-ethinyl estradiol [NuvaRing] 0.12-0.015 mg/24 hr Ring 1 vag ring VAGINAL DIRECTED RF: 0 Discharge Orders: Discharge Order (Routine); Ordered 01/09/20 Ordered By: Clint Robles Admission Data Admit Date/Time: 01/08/20 20:55 Attending Provider: Praful Dunbar Admit Provider: Diana Hunter Primary Care Provider: [facility] Other Providers: Diana Hunter ; Van Martinez Other Interventions: Discharge Summary Assessment (RN) Last Done: 01/09/20 16:38 Supervising Physician Co-Signing Physician Notes Attending attestation Pt seen and examined in concert with Dr. Robles. In agreement with the documented findings as noted in the resident documentation with any exceptions or additions as noted here. 19 y/o female h/o cholecystectomy, appendectomy w/ N/V/RUQ pain Nausea and Vomiting - General surgery consultation appreciated, no indication for surgery - resolved with IVF, zofran Anxiety - considerable sx and probably baseline - psychiatry consultation appreciated - would benefit from case coordination and outpatient mgmt Low BMI - nutrition c/s on discharge for education and supplementation Resident Activity Tracking Resident Involvement: Resident Care Provided Care Provided: Adult Hospital [facility]
[2020-01-09] MEDS ORDERED: hydrOXYzine HCl 10 MG TAB PO PRN (16:39)
== END 2020-01-09 17:21 | disposition home or self-care (01) ==
LOC: ED 16:40 → 3N 16:40 → SUATTDRO 20:55 → 3N 21:55